=== PATIENT | male | born 1990 | race Caucasian/White ===

== ENCOUNTER 2023-07-09 07:08 | Outpatient (RCR) | payer OTHER, SELFPAY ==
--- NOTE | 2023-07-08 14:56 | CR1_ITS ---
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
--- NOTE | 2023-07-30 13:18 | CR1_ITS ---
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
== END 2023-07-30 13:19 | disposition home or self-care (01) ==
LOC: CR 07:08
DX: I22.2 Subsequent non-ST elevation (NSTEMI) myocardial infarction (principal); I51.3 Intracardiac thrombosis, not elsewhere classified; I42.9 Cardiomyopathy, unspecified
CPT/HCPCS: 93798

== ENCOUNTER 2023-07-10 19:04 | Emergency (ER) | payer OTHER, SELFPAY ==
[2023-07-10] VITALS (31 sets, daily range): BP systolic 132–141; BP diastolic 78–89; PULSE 62–78; RESP 12–26; TEMP 36.6; O2SAT 98–100; BMI 29.8
--- NOTE | 2023-07-10 19:19 | CT_ITS ---
[address] [address] Patient Name: PATRICK LEO MRN: [id number] date: 1990 Sex: M Assigned Patient Location: ER Current Patient Location: Accession/Order Number: [id number] Exam Date: 07/10/2023 21:00 Report Date: 07/10/2023 21:56 At the request of: YOSELIN SINGER Procedure: CT angio neck EXAMINATION: CT Angiogram Neck and CT Angiogram Head TECHNIQUE: Multiple axial images of the head and neck were obtained during the dynamic intravenous administration of contrast material according to the standard protocol. 3-D volume rendered reformations were created on an independent workstation. The amount and type of contrast are recorded in the medical record. QPP DOCUMENTATION: All internal carotid artery percent stenoses are calculated using the distal internal carotid artery diameter as the denominator (NASCET criteria). At least one of the following dose reduction techniques was utilized: Iterative reconstruction, and/or Automatic Exposure Control, and/or mA/kV adjustment based on body size. INDICATION: Visual disturbance, slurred speech COMPARISON: CT head, 07/10/2023 ENCOUNTER: Not applicable FINDINGS: CTA NECK: Aortic Arch/Great Vessels: No aneurysmal dilation or dissection of the aortic arch. The brachiocephalic and subclavian arteries are patent. Right Carotid: No significant stenoses, occlusions or dissections of the common carotid, cervical internal carotid, or proximal external carotid arteries. Left Carotid: No significant stenoses, occlusions or dissections of the common carotid, cervical internal carotid, or proximal external carotid arteries Right Vertebral: Codominant. No significant stenoses, occlusions or dissections of the cervical segments of the artery. Left Vertebral: Codominant. No significant stenoses, occlusions or dissections of the cervical segments of the artery. Additional Findings: Mild straightening of the normal cervical lordosis. CTA HEAD: ICAs: The petrous, cavernous, and supraclinoid segments are patent. ACAs: No significant stenoses, occlusions, or aneurysms. MCAs: No significant stenoses, occlusions, or aneurysms. wheel mill operator: No significant stenoses, occlusions, or aneurysms. Basilar: No significant stenoses, occlusions, or aneurysms. Vertebral Arteries: No significant stenoses, occlusions, or aneurysms. Dural Venous Sinuses: Limited assessment of the dural venous sinuses demonstrates no evidence of thrombosis. Additional Findings: None CT/CT angio neck IMPRESSION: 1. No significant stenoses or occlusions throughout the extracranial carotid and vertebral arteries. 2. No large vessel occlusions throughout the intracranial arteries Electronically authenticated by: SANGITA VARGAS Date: 07/10/2023 21:56
--- NOTE | 2023-07-10 19:19 | ECG_ITS ---
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
--- NOTE | 2023-07-10 19:19 | CT_ITS ---
[address] [address] Patient Name: PATRICK LEO MRN: [id number] date: 1990 Sex: M Assigned Patient Location: ER Current Patient Location: Accession/Order Number: [id number] Exam Date: 07/10/2023 21:00 Report Date: 07/10/2023 21:56 At the request of: YOSELIN SINGER Procedure: CT angio head EXAMINATION: CT Angiogram Neck and CT Angiogram Head TECHNIQUE: Multiple axial images of the head and neck were obtained during the dynamic intravenous administration of contrast material according to the standard protocol. 3-D volume rendered reformations were created on an independent workstation. The amount and type of contrast are recorded in the medical record. QPP DOCUMENTATION: All internal carotid artery percent stenoses are calculated using the distal internal carotid artery diameter as the denominator (NASCET criteria). At least one of the following dose reduction techniques was utilized: Iterative reconstruction, and/or Automatic Exposure Control, and/or mA/kV adjustment based on body size. INDICATION: Visual disturbance, slurred speech COMPARISON: CT head, 07/10/2023 ENCOUNTER: Not applicable FINDINGS: CTA NECK: Aortic Arch/Great Vessels: No aneurysmal dilation or dissection of the aortic arch. The brachiocephalic and subclavian arteries are patent. Right Carotid: No significant stenoses, occlusions or dissections of the common carotid, cervical internal carotid, or proximal external carotid arteries. Left Carotid: No significant stenoses, occlusions or dissections of the common carotid, cervical internal carotid, or proximal external carotid arteries Right Vertebral: Codominant. No significant stenoses, occlusions or dissections of the cervical segments of the artery. Left Vertebral: Codominant. No significant stenoses, occlusions or dissections of the cervical segments of the artery. Additional Findings: Mild straightening of the normal cervical lordosis. CTA HEAD: ICAs: The petrous, cavernous, and supraclinoid segments are patent. ACAs: No significant stenoses, occlusions, or aneurysms. MCAs: No significant stenoses, occlusions, or aneurysms. printing assistant: No significant stenoses, occlusions, or aneurysms. Basilar: No significant stenoses, occlusions, or aneurysms. Vertebral Arteries: No significant stenoses, occlusions, or aneurysms. Dural Venous Sinuses: Limited assessment of the dural venous sinuses demonstrates no evidence of thrombosis. Additional Findings: None CT/CT angio head IMPRESSION: 1. No significant stenoses or occlusions throughout the extracranial carotid and vertebral arteries. 2. No large vessel occlusions throughout the intracranial arteries Electronically authenticated by: SANGITA VARGAS Date: 07/10/2023 21:56
--- NOTE | 2023-07-10 19:19 | CT_ITS ---
The [address] [address] Patient Name: PATRICK LEO MRN: [id number] date: 1990 Sex: M Assigned Patient Location: ER Current Patient Location: Accession/Order Number: [id number] Exam Date: 07/10/2023 19:28 Report Date: 07/10/2023 19:55 At the request of: YOSELIN SINGER Procedure: CT head/brain wo con CT OF THE BRAIN WITHOUT CONTRAST: 07/10/2023 7:28 PM EST HISTORY: Visual disturbance and slurred speech TECHNIQUE: Contiguous axially collimated images were obtained through the intracranial compartment, from the vertex through the foramen magnum. Coronal and Sagittal reformatted images were prepared on a separate workstation and reviewed on the PACS for anatomic correlation. No contrast was administered. This CT exam was performed using one or more of the following dose reduction techniques: Automated exposure control, adjustment of the mA and/or kV according to patient size, or use of iterative reconstruction technique. Thin section coronal and sagittal images were reconstructed from the axial data set. All images were reviewed and interpreted. COMPARISON: None. FINDINGS: There is no intracranial hemorrhage or abnormal extra-axial fluid collection. To the extent of evaluated with noncontrast technique, there is no mass lesion appreciated. There is no mass-effect or shift of midline structures. The ventricles and CSF spaces are age appropriate. There is no evidence of hydrocephalus. There is no effacement of the basal cisterns. [place] white matter differentiation is well preserved throughout, without evidence of acute ischemia. There is no significant leukomalacia. The basal ganglia and thalami are unremarkable. The posterior fossa, brain stem, and fourth ventricle are normal. There is no tonsillar ectopy. The calvarium is intact, without destructive lesion or depressed fracture. Limited assessment of orbits. No obvious abnormality. Correlate with ophthalmic exam. The mastoid air cells are well-aerated. The paranasal sinuses are normally aerated. CT/CT head/brain wo con IMPRESSION: No acute or significant intracranial pathology. Electronically authenticated by: RAQUEL PEARSON Date: 07/10/2023 19:55
[2023-07-10 19:28] LABS: Basophils Percent Auto 0.7 % (0.2-2.0); Eosinophils Absolute Auto 0.1 10^3/uL (0.0-0.7); Eosinophils Percent Auto 2.3 % (0.9-7.0); Hemoglobin 15.6 g/dL (14.0-18.0); Immature Granulocytes Abs Auto 0.02 10^3/uL (0.00-0.03); Immature Granulocytes Pct Auto 0.4 % (0.0-0.5); Lymphocytes Percent Auto 34.6 % (20.5-60.0); Mean Corpuscular HGB Conc 33.9 g/dL (29.9-35.2); Mean Corpuscular Hemoglobin 30.2 pg (25.9-34.0); Mean Platelet Volume 9.4 fL (9.5-13.5); Monocytes Absolute Auto 0.4 10^3/uL (0.3-0.8); Monocytes Percent Auto 7.4 % (1.7-12.0); Neutrophils Absolute Auto 3.1 10^3/uL (1.4-6.5); Neutrophils Percent Auto 54.6 % (43.0-75.0); Platelet Count 146 10^3/uL (150-450); Red Blood Count 5.17 10^6/uL (4.70-6.10); Red Cell Distribution Width 12.7 % (11.0-15.0); White Blood Count 5.7 10^3/uL (4.0-11.0)
--- NOTE | 2023-07-10 19:30 | ED_ITS ---
Documented by User: Yoselin Singer 07/10/23 21:51 HPI - Neuro Symptoms/Deficit General Chief Complaint: Neuro Symptoms/Deficit Stated Complaint: neuro symptoms Time Seen by Provider: 07/10/23 19:18 Source: patient Mode of arrival: Wheelchair History of Present Illness HPI Narrative: 32 year old male presents to the ED for blurred vision and slurred speech. Onset was approx 1845 with the blurred vision. He reported it was to his right eye; peripheral vision on the right. Significant other states he then developed slurred speech. states it lasted 2-3 minutes. He currently reports intermittent N/T to various digits of his right hand. Mid May, he was admitted to [facility] for an SC. He was told his SC was likely related to a viral illness he had in April,. He was told his EF was 20%. Pt is taking Eliquis and 81 mg asa daily. He denies fever, chills, weakness. Denies recent CP, SOB, dizziness. Denies recent fall. Denies pain currently. States he now feels anxious. 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 States his Entresto dose was doubled yesterday. Related Data Home Medications Medication Instructions Recorded Confirmed apixaban 5 mg tablet (Eliquis) 5 mg PO Q12H 07/10/23 07/10/23 aspirin 81 mg tablet,delayed 81 mg PO .q24 07/10/23 07/10/23 release empagliflozin 10 mg tablet 10 mg PO .q24 07/10/23 07/10/23 (Jardiance) furosemide 40 mg tablet 40 mg PO Q12H 07/10/23 07/10/23 metoprolol succinate 50 mg 50 mg PO .q24 07/10/23 07/10/23 tablet,extended release 24 hr sacubitril 49 mg-valsartan 51 mg 1 tab PO BID 07/10/23 07/10/23 tablet (Entresto) spironolactone 25 mg tablet 25 mg PO .q24 07/10/23 07/10/23 Allergies Allergy/AdvReac Type Severity Reaction Status Date / Time iodine Allergy Severe Anaphylaxis Verified 07/10/23 19:18 Review of Systems ROS Constitutional Denies: fever or chills Eyes Reports: change in vision and blurry vision; Denies: blind spots, light sensitivity or eye discomfort Ears, nose, mouth, and throat Denies: throat pain or neck pain Cardiovascular Denies: chest pain Respiratory Denies: shortness of breath Gastrointestinal Denies: abdominal pain Musculoskeletal Denies: neck pain, extremity pain or extremity swelling Integumentary/Breast Denies: rash Neurological Reports: numbness in extremities, slurred speech and difficulty communicating thoughts; Denies: headache, weakness in extremities, lack of coordination or dizziness Psychiatric Reports: anxiety [facility] Medical History (Updated 07/10/23 @ 23:37 by Mary Elder MD) Heart attack ?I21.9 - Acute myocardial infarction, unspecified (ICD-10) Social History Smoking status: Former smoker Exam Constitutional Vital Signs, click to edit/add: Last Vital Signs Temp 98 F 07/10/23 19:11 Pulse 63 07/11/23 00:14 Resp 21 07/11/23 00:14 BP 113/69 07/11/23 00:14 Pulse Ox 99 07/10/23 20:40 O2 Del Method Room Air 07/10/23 19:11 Common normals: no apparent distress and oriented x3 General appearance: cooperative HENGA Common normals: normocephalic Face and sinus: normal facial exam Nose: external nose normal Mouth: oral and palatal mucosa normal, lip normal and tongue normal; no drooling Throat: uvula midline Eye Common normals: PERRL, EOMs intact bilaterally, conjunctivae normal and no scleral icterus Visual billings: no peripheral vision loss and no central vision loss Neck & C-Spine Common normals: supple Chest Chest: symmetrical chest wall rise Respiratory Common normals: normal respiratory effort and clear to auscultation bilaterally Effort & inspection: able to speak in complete sentences and symmetric chest movement Cardio Common normals: regular rate and regular rhythm Extremity Common normals: normal to inspection, full ROM and normal capillary refill Neuro Common normals: oriented x3, CN's II-XII intact bilaterally, moves all extremities, no focal motor deficits, no sensory deficits noted and gait normal Sensorium/orientation: awake and alert Speech: speech normal Motor exam: strength 5/5 throughout and no pronator drift Coordination: [id number] test normal and [id number] test normal Other: NIH Stroke Scale/Score (NIHSS) from [email or web address] on 07/10/2023 All calculations should be rechecked by clinician prior to use RESULT SUMMARY: 0 points NIH Stroke Scale INPUTS: 1A: Level of consciousness ?> 0 = Alert; keenly responsive 1B: Ask month and age ?> 0 = Both questions right 1C: 'Blink eyes' & 'squeeze hands' ?> 0 = Performs both tasks 2: Horizontal extraocular movements ?> 0 = Normal 3: Visual billings ?> 0 = No visual loss 4: Facial palsy ?> 0 = Normal symmetry 5A: Left arm motor drift ?> 0 = No drift for 10 seconds 5B: Right arm motor drift ?> 0 = No drift for 10 seconds 6A: Left leg motor drift ?> 0 = No drift for 5 seconds 6B: Right leg motor drift ?> 0 = No drift for 5 seconds 7: Limb Ataxia ?> 0 = No ataxia 8: Sensation ?> 0 = Normal; no sensory loss 9: Language/aphasia ?> 0 = Normal; no aphasia 10: Dysarthria ?> 0 = Normal 11: Extinction/inattention ?> 0 = No abnormality Course Reevaluation(s) Reevaluation #1: Pt reports all sx have resolved, including the N/T to his right hand. Time: 21:03 Vital Signs Vital signs: Vital Signs Temperature 98 F 07/10/23 19:11 Pulse Rate 72 07/10/23 19:11 Respiratory Rate 18 07/10/23 19:11 Blood Pressure 139/89 07/10/23 19:11 Pulse Oximetry 99 07/10/23 19:11 Oxygen Delivery Method Room Air 07/10/23 19:11 Temperature 98 F 07/10/23 19:11 Pulse Rate 63 07/11/23 00:14 Respiratory Rate 21 07/11/23 00:14 Blood Pressure 113/69 07/11/23 00:14 Pulse Oximetry 99 07/10/23 20:40 Oxygen Delivery Method Room Air 07/10/23 19:11 MDM - Neuro Symptoms/Deficit MDM Narrative Medical decision making narrative: CBC, BMP were unremarkable. LFTs were mildly elevated. CT head without contrast was negative for acute findings. CTA head and neck were pending. Care was resumed to Dr. Elder. See her dictation for further evaluation and treatment. Medical Records Attestation: I reviewed the patient's medical records. Lab Data Attestation: I reviewed the patient's lab results. Labs: Lab Results 07/10/23 07/10/23 Range/Units 19:21 19:45 WBC 5.7 (4.0-11.0) 10^3/uL RBC 5.17 (4.70-6.10) 10^6/uL Hgb 15.6 (14.0-18.0) g/dL Hct 46.0 (42.0-54.0) % MCV 89.0 (80.0-94.0) fL MCH 30.2 (25.9-34.0) pg MCHC 33.9 (29.9-35.2) g/dL RDW 12.7 (11.0-15.0) % Plt Count 146 L (150-450) 10^3/uL MPV 9.4 L (9.5-13.5) fL Neut % (Auto) 54.6 (43.0-75.0) % Lymph % (Auto) 34.6 (20.5-60.0) % [place] % (Auto) 7.4 (1.7-12.0) % Eos % (Auto) 2.3 (0.9-7.0) % Baso % (Auto) 0.7 (0.2-2.0) % Neut # (Auto) 3.1 (1.4-6.5) 10^3/uL Lymph # (Auto) 2.0 (1.2-3.8) 10^3/uL [place] # (Auto) 0.4 (0.3-0.8) 10^3/uL Eos # (Auto) 0.1 (0.0-0.7) 10^3/uL Baso # (Auto) 0.0 (0.0-0.1) 10^3/uL Abs Immat Gran (auto) 0.02 (0.00-0.03) 10^3/uL Imm/Tot Granulo (auto) 0.4 (0.0-0.5) % PT 10.7 (9.0-11.6) sec INR 1.01 APTT 31.1 (22.3-36.2) sec Sodium 140 (136-145) mmol/L Potassium 4.0 (3.5-5.1) mmol/L Chloride 104 (98-107) mmol/L Carbon Dioxide 28.5 (21.0-32.0) mmol/L Anion Gap 11.5 BUN 12.0 (7.0-18.0) mg/dL Creatinine 0.99 (0.70-1.30) mg/dL Est GFR ( Amer) >60 (>=60) Est GFR (Non-Af Amer) >60 (>=60) BUN/Creatinine Ratio 12.1 Glucose 116 H (74-106) mg/dL Calcium 9.3 (8.5-10.1) mg/dL Total Bilirubin 1.1 H (0.2-1.0) mg/dL AST 50 H (15-37) U/L ALT 135 H (16-63) U/L Alkaline Phosphatase 65 (46-116) U/L Troponin I High Sens 11.7 (4.0-76.1) pg/mL Total Protein 7.9 (6.4-8.2) g/dL Albumin 4.0 (3.4-5.0) g/dL Globulin 3.9 g/dL Albumin/Globulin Ratio 1.0 POC Glucose 98 (74-106) mg/dL Imaging Data CT scan - head: Attestation: I have reviewed the pertinent imaging results. Radiologist's impression: ITS Impressions Head CT 07/10/23 19:19 IMPRESSION: No acute or significant intracranial pathology. Electronically authenticated by: RAQUEL PEARSON Date: 07/10/2023 19:55 Head CTA 07/10/23 19:19 IMPRESSION: 1. No significant stenoses or occlusions throughout the extracranial carotid and vertebral arteries. 2. No large vessel occlusions throughout the intracranial arteries Electronically authenticated by: SANGITA VARGAS Date: 07/10/2023 21:56 Neck CTA 07/10/23 19:19 IMPRESSION: 1. No significant stenoses or occlusions throughout the extracranial carotid and vertebral arteries. 2. No large vessel occlusions throughout the intracranial arteries Electronically authenticated by: SANGITA VARGAS Date: 07/10/2023 21:56 Procedure: CT head/brain wo con CT OF THE BRAIN WITHOUT CONTRAST: 07/10/2023 7:28 PM EST HISTORY: Visual disturbance and slurred speech TECHNIQUE: Contiguous axially collimated images were obtained through the intracranial compartment, from the vertex through the foramen magnum. Coronal and Sagittal reformatted images were prepared on a separate workstation and reviewed on the PACS for anatomic correlation. No contrast was administered. This CT exam was performed using one or more of the following dose reduction techniques: Automated exposure control, adjustment of the mA and/or kV according to patient size, or use of iterative reconstruction technique. Thin section coronal and sagittal images were reconstructed from the axial data set. All images were reviewed and interpreted. COMPARISON: None. FINDINGS: There is no intracranial hemorrhage or abnormal extra-axial fluid collection. To the extent of evaluated with noncontrast technique, there is no mass lesion appreciated. There is no mass-effect or shift of midline structures. The ventricles and CSF spaces are age appropriate. There is no evidence of hydrocephalus. There is no effacement of the basal cisterns. Kong white matter differentiation is well preserved throughout, without evidence of acute ischemia. There is no significant leukomalacia. The basal ganglia and thalami are unremarkable. The posterior fossa, brain stem, and fourth ventricle are normal. There is no tonsillar ectopy. The calvarium is intact, without destructive lesion or depressed fracture. Limited assessment of orbits. No obvious abnormality. Correlate with ophthalmic exam. The mastoid air cells are well-aerated. The paranasal sinuses are normally aerated. CT/CT head/brain wo con IMPRESSION: No acute or significant intracranial pathology. Electronically authenticated by: RAQUEL PEARSON Date: 07/10/2023 19:55 ECG Data Attestation: ?I have reviewed the pertinent ECG results. (EKG was reviewed by the attending physician. It showed sinus rhythm at a rate of 63. No acute ST segment changes. ) Interpretation: Measurements Intervals [place] Rate: 63 P: 43 ME: 198 QRS: -7 QRSD: 102 T: 24 QT: 378 QTc: 384 Interpretive Statements 1100 Sinus rhythm 3114 Cannot rule out anterior myocardial infarction, age undetermined 9150 abnormal ECG No previous ECG available for comparison Discharge Plan Discharge Chief Complaint: Neuro Symptoms/Deficit Clinical Impression: Transient cerebral ischemia Patient Disposition: [facility] Time of Disposition Decision: 23:36 Discharge Location: [facility] Condition: Good Documented by User: Mary Elder MD 07/11/23 00:25 HPI - Neuro Symptoms/Deficit General Chief Complaint: Neuro Symptoms/Deficit Stated Complaint: neuro symptoms Time Seen by Provider: 07/10/23 19:18 Source: family Related Data Home Medications Medication Instructions Recorded Confirmed apixaban 5 mg tablet (Eliquis) 5 mg PO Q12H 07/10/23 07/10/23 aspirin 81 mg tablet,delayed 81 mg PO .q24 07/10/23 07/10/23 release empagliflozin 10 mg tablet 10 mg PO .q24 07/10/23 07/10/23 (Jardiance) furosemide 40 mg tablet 40 mg PO Q12H 07/10/23 07/10/23 metoprolol succinate 50 mg 50 mg PO .q24 07/10/23 07/10/23 tablet,extended release 24 hr sacubitril 49 mg-valsartan 51 mg 1 tab PO BID 07/10/23 07/10/23 tablet (Entresto) spironolactone 25 mg tablet 25 mg PO .q24 07/10/23 07/10/23 Allergies Allergy/AdvReac Type Severity Reaction Status Date / Time iodine Allergy Severe Anaphylaxis Verified 07/10/23 19:18 [facility] Medical History (Updated 07/10/23 @ 23:37 by Mary Elder MD) Heart attack ?I21.9 - Acute myocardial infarction, unspecified (ICD-10) Social History Smoking status: Former smoker Exam Constitutional Vital Signs, click to edit/add: Last Vital Signs Temp 98 F 07/10/23 19:11 Pulse 63 07/11/23 00:14 Resp 21 07/11/23 00:14 BP 113/69 07/11/23 00:14 Pulse Ox 99 07/10/23 20:40 O2 Del Method Room Air 07/10/23 19:11 Course Vital Signs Vital signs: Vital Signs Temperature 98 F 07/10/23 19:11 Pulse Rate 72 07/10/23 19:11 Respiratory Rate 18 07/10/23 19:11 Blood Pressure 139/89 07/10/23 19:11 Pulse Oximetry 99 07/10/23 19:11 Oxygen Delivery Method Room Air 07/10/23 19:11 Temperature 98 F 07/10/23 19:11 Pulse Rate 63 07/11/23 00:14 Respiratory Rate 21 07/11/23 00:14 Blood Pressure 113/69 07/11/23 00:14 Pulse Oximetry 99 07/10/23 20:40 Oxygen Delivery Method Room Air 07/10/23 19:11 MDM - Neuro Symptoms/Deficit MDM Narrative Medical decision making narrative: CBC, BMP were unremarkable. LFTs were mildly elevated. CT head without contrast was negative for acute findings. CTA head and neck were pending. Care was resumed to Dr. Elder. See her dictation for further evaluation and treatment. 32-year-old male was seen and evaluated in conjunction with the physician assistant offset press operator. Please refer to his full H and P. In brief thhis patient had a cardiac event in May of this year in which she was told that he had an ejection fraction of 20 percent with clean coronary arteries and had heart failure. He was told that he may have these symptoms due to a viral illness/myocarditis I assume. He is on Eliquis, aspirin and Entresto. Early this evening while at home the patient had an episode of dysarthria that lasted several minutes. He then had some change in his vision in his right eye, peripheral vision. Upon arrival his dysarthria and vision change had resolved but he was having some numbness and tingling in the right hand. Accu-Chek was 97. His NIH stroke scale was 0. His peripheral vision was intact, there is no facial droop, his cognition was intact, he still felt that he was having trouble finding some words. He was shaking his right hand stating that he was having some numbness and tingling in the right hand.He was able to approximate thumb and all fingers. Sensation was intact and was equal bilaterally. He was taken for a CT scan of the head which was read by radiology as normal. He has a contrast ALLERGY so he was premedicated with Solu-Medrol, Pepcid and Benadryl and CT angiogram of the head and neck was ordered. These are normal according to radiology. The patient was reevaluated several times while in the emergency department while waiting for his studies to results and his symptoms have completely resolved including the numbness and tingling in the right 5th finger. Labs are reviewed and EKG is reviewed. EKG is essentially unchanged from prior EKGs and does not show any acute findings. Troponin is within normal limits. I discussed my concerns about the patient having a transient ischemic attack which could be a prrecursor to a stroke considering his recent cardiac problems, low ejection fraction and suggested that he be transferred to a higher level of care where neurology is available. The patient spoke to his and father and ultimately agreed to transfer. The case was discussed with Dr. Dowell at [facility] and he is accepted for transfer The patient asked if he should take his nighttime medications and I suggested that he did and at that time, he realized that he may have missed a dose of his Eliquis.. Patient will be transferred to [facility] by private vehicle due to an extended wait time for EMS transfer Medical Records Medical records narrative: The [address] [address] [address] Scan Report Signed Patient: PATRICK LEO MR#: [id number] : 1990 Acct:[id number] Age/Sex: 32 / M ADM Date: 07/10/23 Loc: ER Attending Dr: Ordering Physician: Yoselin Singer Date of Service: 07/10/23 Procedure(s): CT head/brain wo con Accession Number(s): [id number] cc: Physician,Non-Staff M.[place]~ The [address] [address] Patient Name: PATRICK LEO MRN: [id number] date: 1990 Sex: M Assigned Patient Location: ER Current Patient Location: ER Accession/Order Number: [id number] Exam Date: 07/10/2023 19:28 Report Date: 07/10/2023 19:55 At the request of: YOSELIN SINGER Procedure: CT head/brain wo con CT OF THE BRAIN WITHOUT CONTRAST: 07/10/2023 7:28 PM EST HISTORY: Visual disturbance and slurred speech TECHNIQUE: Contiguous axially collimated images were obtained through the intracranial compartment, from the vertex through the foramen magnum. Coronal and Sagittal reformatted images were prepared on a separate workstation and reviewed on the PACS for anatomic correlation. No contrast was administered. This CT exam was performed using one or more of the following dose reduction techniques: Automated exposure control, adjustment of the mA and/or kV according to patient size, or use of iterative reconstruction technique. Thin section coronal and sagittal images were reconstructed from the axial data set. All images were reviewed and interpreted. COMPARISON: None. FINDINGS: There is no intracranial hemorrhage or abnormal extra-axial fluid collection. To the extent of evaluated with noncontrast technique, there is no mass lesion appreciated. There is no mass-effect or shift of midline structures. The ventricles and CSF spaces are age appropriate. There is no evidence of hydrocephalus. There is no effacement of the basal cisterns. Kong white matter differentiation is well preserved throughout, without evidence of acute ischemia. There is no significant leukomalacia. The basal ganglia and thalami are unremarkable. The posterior fossa, brain stem, and fourth ventricle are normal. There is no tonsillar ectopy. The calvarium is intact, without destructive lesion or depressed fracture. Limited assessment of orbits. No obvious abnormality. Correlate with ophthalmic exam. The mastoid air cells are well-aerated. The paranasal sinuses are normally aerated. CT/CT head/brain wo con IMPRESSION: No acute or significant intracranial pathology. Electronically authenticated by: RAQUEL PEARSON Date: 07/10/2023 19:55 Lab Data Labs: Lab Results 07/10/23 07/10/23 Range/Units 19:21 19:45 WBC 5.7 (4.0-11.0) 10^3/uL RBC 5.17 (4.70-6.10) 10^6/uL Hgb 15.6 (14.0-18.0) g/dL Hct 46.0 (42.0-54.0) % MCV 89.0 (80.0-94.0) fL MCH 30.2 (25.9-34.0) pg MCHC 33.9 (29.9-35.2) g/dL RDW 12.7 (11.0-15.0) % Plt Count 146 L (150-450) 10^3/uL MPV 9.4 L (9.5-13.5) fL Neut % (Auto) 54.6 (43.0-75.0) % Lymph % (Auto) 34.6 (20.5-60.0) % [place] % (Auto) 7.4 (1.7-12.0) % Eos % (Auto) 2.3 (0.9-7.0) % Baso % (Auto) 0.7 (0.2-2.0) % Neut # (Auto) 3.1 (1.4-6.5) 10^3/uL Lymph # (Auto) 2.0 (1.2-3.8) 10^3/uL [place] # (Auto) 0.4 (0.3-0.8) 10^3/uL Eos # (Auto) 0.1 (0.0-0.7) 10^3/uL Baso # (Auto) 0.0 (0.0-0.1) 10^3/uL Abs Immat Gran (auto) 0.02 (0.00-0.03) 10^3/uL Imm/Tot Granulo (auto) 0.4 (0.0-0.5) % PT 10.7 (9.0-11.6) sec INR 1.01 APTT 31.1 (22.3-36.2) sec Sodium 140 (136-145) mmol/L Potassium 4.0 (3.5-5.1) mmol/L Chloride 104 (98-107) mmol/L Carbon Dioxide 28.5 (21.0-32.0) mmol/L Anion Gap 11.5 BUN 12.0 (7.0-18.0) mg/dL Creatinine 0.99 (0.70-1.30) mg/dL Est GFR ( Amer) >60 (>=60) Est GFR (Non-Af Amer) >60 (>=60) BUN/Creatinine Ratio 12.1 Glucose 116 H (74-106) mg/dL Calcium 9.3 (8.5-10.1) mg/dL Total Bilirubin 1.1 H (0.2-1.0) mg/dL AST 50 H (15-37) U/L ALT 135 H (16-63) U/L Alkaline Phosphatase 65 (46-116) U/L Troponin I High Sens 11.7 (4.0-76.1) pg/mL Total Protein 7.9 (6.4-8.2) g/dL Albumin 4.0 (3.4-5.0) g/dL Globulin 3.9 g/dL Albumin/Globulin Ratio 1.0 POC Glucose 98 (74-106) mg/dL Imaging Data CT scan - head: Radiologist's impression: ITS Impressions Head CT 07/10/23 19:19 IMPRESSION: No acute or significant intracranial pathology. Electronically authenticated by: RAQUEL PEARSON Date: 07/10/2023 19:55 Head CTA 07/10/23 19:19 IMPRESSION: 1. No significant stenoses or occlusions throughout the extracranial carotid and vertebral arteries. 2. No large vessel occlusions throughout the intracranial arteries Electronically authenticated by: SANGITA VARGAS Date: 07/10/2023 21:56 Neck CTA 07/10/23 19:19 IMPRESSION: 1. No significant stenoses or occlusions throughout the extracranial carotid and vertebral arteries. 2. No large vessel occlusions throughout the intracranial arteries Electronically authenticated by: SANGITA VARGAS Date: 07/10/2023 21:56 ECG Data Attestation: I personally reviewed and interpreted this ECG as follows: (EKG was reviewed by the attending physician. It showed sinus rhythm at a rate of 63. No acute ST segment changes. ) Critical Care Time Critical Care Time Critical Care Time: Yes Total Critical Care Time: 40 Attestation: Patient was seen by myself and Marilia Raygoza, I was unable to close the chart with her documentation in place and some of her documentation may be deleted Discharge Plan Discharge Chief Complaint: Neuro Symptoms/Deficit Clinical Impression: Transient cerebral ischemia Patient Disposition: [facility] Time of Disposition Decision: 23:36 Discharge Location: [facility] Condition: Good
[2023-07-10 19:45] LABS: INR 1.01; Partial Thromboplastin Time 31.1 sec (22.3-36.2); Prothrombin Time 10.7 sec (9.0-11.6)
[2023-07-10 19:46] LABS: Alanine Aminotransferase 135 U/L (16-63); Alkaline Phosphatase 65 U/L (46-116); Anion Gap 11.5; Aspartate Amino Transferase 50 U/L (15-37); BUN Creatinine Ratio 12.1; Bilirubin Total 1.1 mg/dL (0.2-1.0); Calcium 9.3 mg/dL (8.5-10.1); Carbon Dioxide 28.5 mmol/L (21.0-32.0); Chloride 104 mmol/L (98-107); Estimated GFR (African America >60 (>=60); Estimated GFR (Non-African Ame >60 (>=60); Globulin 3.9 g/dL; Glucose 116 mg/dL (74-106); Sodium 140 mmol/L (136-145); Total Protein 7.9 g/dL (6.4-8.2)
[2023-07-10 19:47] LABS: Glucometer 98 mg/dL (74-106)
[2023-07-10] MEDS: METHYLPREDNISOLONE SOD SUCC PF 125 MG/2 ML VIAL IVP (19:57)
[2023-07-10] MEDS: DIPHENHYDRAMINE HCL 50 MG/ML (1ML) VIAL 25 MG IV (19:59)
[2023-07-10] MEDS: FAMOTIDINE/PF 20 MG/2 ML VIAL IV (20:02)
[2023-07-10 22:21] LABS: Troponin I High Sensitivity 11.7 pg/mL (4.0-76.1)
[2023-07-11] VITALS: PULSE 68; RESP 15
[2023-07-11 00:10] VITALS: PULSE 61; RESP 17
[2023-07-11 00:14] VITALS: BP 113/69; PULSE 63; RESP 21
[2023-07-11 00:20] VITALS: BP 116/63; PULSE 63; RESP 16; TEMP 36.6; O2SAT 99
== END 2023-07-11 00:20 | disposition short-term general hospital (02) ==
PROVIDERS: Nurse Practitioner Family; Emergency Provider Emergency Medicine
DX: G45.9 Transient cerebral ischemic attack, unspecified (principal); I25.2 Old myocardial infarction; Z79.82 Long term (current) use of aspirin; Z79.01 Long term (current) use of anticoagulants; Z79.899 Other long term (current) drug therapy; Z87.891 Personal history of nicotine dependence
CPT/HCPCS: 36415; 70450; 70496; 70498; 80053; 84484; 85025; 85610; 85730; 93005; 96374; 96375; 99285; J1200; J2930; Q9967